=== PATIENT | male | born 1975 | race Caucasian/White ===

== ENCOUNTER → 2021-09-07 | Day surgery (SDC) | payer OTHER ==
[~2021-09-07] VITALS: Ht 170.2 cm; Wt 77.1 kg
[~2021-09-07] MED LIST: ALOGLIPTIN25 MG PO; ATORVASTATIN CA80 MG PO; DIVALPROEX SOD500 M1 PO; GLIPIZIDE10 MG PO; LANTUS100 UNIT/1 SC; LOSARTAN POTASS25 MG PO; MELOXICAM15 MG PO; METFORMIN HCL1000 MG PO; NOVOLOG VI100 UNIT/1 SC; PANTOPRAZOLE SO40 MG PO; VALPROIC ACID250 MG PO
[2021-09-07 07:58] LABS: ALBUMIN 3.8 g/dL (3.4-5.0); BILIRUBIN - TOTAL 0.5 mg/dL (0.2-1.0); BUN/CREAT RATIO (CALC) 25.4 RATIO; CREATININE 0.67 mg/dL (0.67-1.17); GLOBULIN (CALCULATION) 3.4 g/dL; POTASSIUM 4.9 mmol/L (3.5-5.1); TOTAL PROTEIN 7.2 g/dL (6.4-8.2)
== END | disposition home or self-care (01) ==
LOC: FAS 06:58
PROVIDERS: Anesthesiology
DX: Z12.11 Encounter for screening for malignant neoplasm of colon (principal); E11.43 Type 2 diabetes mellitus with diabetic autonomic (poly)neuropathy; K31.84 Gastroparesis; K31.89 Other diseases of stomach and duodenum; E11.65 Type 2 diabetes mellitus with hyperglycemia; K21.9 Gastro-esophageal reflux disease without esophagitis; F31.9 Bipolar disorder, unspecified; E78.00 Pure hypercholesterolemia, unspecified; Z79.4 Long term (current) use of insulin; Z79.899 Other long term (current) drug therapy; F17.210 Nicotine dependence, cigarettes, uncomplicated
CPT/HCPCS: 43239; G0121; 36415; 80053; 82962; J2250; J2704; J7120